=== PATIENT | male | born 1970 | race Two or more races ===

== ENCOUNTER 2022-05-20 12:52 | Outpatient (CLI) | payer OTHER | END 2022-05-20 23:59 | disposition home or self-care (01) | LOC: RAD 12:52 | PROVIDERS: ATTEND Chiropractor | DX: I51.7 Cardiomegaly (principal); I25.9 Chronic ischemic heart disease, unspecified | CPT/HCPCS: 93306 ==

== ENCOUNTER 2023-07-18 06:45 | Day surgery (SDC) | payer OTHER ==
[~2023-07-18] VITALS: Ht 177.8 cm; Wt 108.4 kg
[2023-07-18] VITALS (10 sets, daily range): BP systolic 113–144; BP diastolic 71–99; PULSE 57–66; RESP 12–16; TEMP 98.5; O2SAT 95
[2023-07-18] MEDS ORDERED: RANO10005 PO (07:15)
[2023-07-18] MEDS ORDERED: METF-900 PO (07:15)
[2023-07-18] MEDS ORDERED: CLOP75TA34 PO (07:15)
[2023-07-18] MEDS ORDERED: OMEP40CA21 PO (07:16)
[2023-07-18] MEDS ORDERED: LISI20TA28 PO (07:17)
[2023-07-18] MEDS ORDERED: METO-467 PO (07:17)
[2023-07-18] MEDS ORDERED: ATOR80TA PO (07:19)
[2023-07-18] MEDS ORDERED: HYDR-3686 PO (07:19)
[2023-07-18] MEDS ORDERED: normal saline 1,000 ML IV SCH (07:20)
[2023-07-18] MEDS ORDERED: ASPI-1265 PO (07:20)
[2023-07-18] MEDS ORDERED: AMLO10TA48 PO (07:20)
[2023-07-18] MEDS ORDERED: diphenhydrAMINE 25mg capsule PO PRN (07:20)
[2023-07-18] MEDS ORDERED: sodium bicarbonate 1meq/ml syr 150 ML in dextrose 5%-water 1,000 ML IV SCH (07:30)
[2023-07-18 08:01] LABS: BASOPHILS % (AUTO) 0.4 % (0-1); EOSINOPHILS # (AUTO) 0.2 X10'3 (0-0.9); EOSINOPHILS % (AUTO) 3.8 % (0-6); HEMOGLOBIN 14.3 g/dl (14.0-17.9); LYMPHOCYTES # (AUTO) 2.8 X10'3 (1.1-4.8); MEAN CORPUSCULAR HEMOGLOBIN 30.6 PG (27.0-31.0); MEAN CORPUSCULAR HGB CONC 34.9 g/dL (33.0-36.5); MEAN CORPUSCULAR VOLUME 87.6 FL (78-98); MONOCYTES # (AUTO) 0.4 X10'3 (0-0.9); NEUTROPHILS # (AUTO) 2.6 X10'3 (1.8-7.7); NEUTROPHILS % (AUTO) 43.8 % (42-75); PLATELET COUNT 209 X10'3 (140-440); RED BLOOD COUNT 4.68 X10'6 (4.70-6.10); RED CELL DISTRIBUTION WIDTH 13.2 % (11.5-14.5)
[2023-07-18 08:13] LABS: INR 0.9 INR; PROTHROMBIN TIME 10.2 SECONDS (9.0-12.0)
[2023-07-18 08:23] LABS: ANION GAP 9 (8-16); BLOOD UREA NITROGEN 16 MG/DL (7-18); BUN/CREATININE RATIO 13.9 (10.0-20.0); CALCIUM 9.6 MG/DL (8.5-10.1); CHLORIDE 101 MMOL/L (99-107); CREATININE 1.15 MG/DL (0.60-1.10); GLUCOSE 282 MG/DL (70-104); POTASSIUM 3.8 MMOL/L (3.5-5.1); SODIUM 137 MMOL/L (135-145); TOTAL CARBON DIOXIDE 27.4 MMOL/L (24-32); eCRCL 79 ML/MIN; eGFR 67 ML/MIN
[2023-07-18] MEDS ORDERED: LIDOcaine 1% (10mg/ml) 2ml vial ONE (10:26)
[2023-07-18] MEDS ORDERED: fentaNYL/PF 50MCG/1 ML 2ML syringe ONE (10:26)
[2023-07-18] MEDS ORDERED: midazolam 1 mg/ML 2ml injection ONE ×2 (10:26→11:06)
[2023-07-18] MEDS ORDERED: iohexol 350MG/ML 100ml bottle IV ONE (10:27)
[2023-07-18] MEDS ORDERED: heparin 1,000unit/ml 10ml vial 10 ML ONE (10:27)
[2023-07-18] MEDS ORDERED: verapamil 2.5 mg/ml inj IV ONE (10:29)
[2023-07-18] MEDS ORDERED: nitroGLYCERIN 500mcg/5mL D5W 5 ML IV ONE (10:32)
== END 2023-07-18 15:15 | disposition home or self-care (01) ==
LOC: SSTAY O 06:45
PROVIDERS: ATTEND Internal Medicine Cardiovascular Disease
DX: I25.119 Atherosclerotic heart disease of native coronary artery with unspecified angina pectoris (principal); T82.855A Stenosis of coronary artery stent, initial encounter; E11.9 Type 2 diabetes mellitus without complications; E78.00 Pure hypercholesterolemia, unspecified; F43.10 Post-traumatic stress disorder, unspecified; I10 Essential (primary) hypertension; E03.9 Hypothyroidism, unspecified; F32.A Depression, unspecified; Z79.82 Long term (current) use of aspirin; Z79.899 Other long term (current) drug therapy; Y83.8 Other surgical procedures as the cause of abnormal reaction of the patient, or of later complication, without mention of misadventure at the time of the procedure; Z98.890 Other specified postprocedural states; Z88.0 Allergy status to penicillin
CPT/HCPCS: 36415; 80048; 82948; 85025; 85610; 93458; 99152; 99153; A6258; J1644; J2250; J3010; J3490; J7030; Q0163; Q9967; A6402; C1894

== ENCOUNTER 2023-10-06 19:32 | Emergency (ER) | payer OTHER ==
[~2023-10-06] VITALS: Ht 175.3 cm; Wt 101.8 kg
[~2023-10-06 19:32] MED LIST: AMLO10TA48 PO; ASPI-1265 PO; ATOR80TA PO; CHOL200074 PO; CLOP75TA34 PO; HYDR12.55 PO; LEVO50TA8 PO; LISI20TA28 PO; METF-900 PO; METO-467 PO; OMEP40CA21 PO; RANO10005 PO
[2023-10-06 19:37] VITALS: BP 174/119; PULSE 92; RESP 17; TEMP 97.5; O2SAT 99
[2023-10-06] MEDS ORDERED: aspirin 81mg tab.chew PO ONE (19:40)
[2023-10-06 20:05] LABS: BASOPHILS % (AUTO) 0.5 % (0-1); EOSINOPHILS # (AUTO) 0.2 X10'3 (0-0.9); EOSINOPHILS % (AUTO) 1.9 % (0-6); HEMATOCRIT 40.7 % (42.0-52.0); HEMOGLOBIN 13.6 g/dl (14.0-17.9); LYMPHOCYTES # (AUTO) 2.2 X10'3 (1.1-4.8); LYMPHOCYTES % (AUTO) 27.6 % (21-51); MEAN CORPUSCULAR HGB CONC 33.4 g/dL (33.0-36.5); MEAN CORPUSCULAR VOLUME 86.7 FL (78-98); MONOCYTES # (AUTO) 0.5 X10'3 (0-0.9); MONOCYTES % (AUTO) 6.8 % (2-12); NEUTROPHILS # (AUTO) 5.1 X10'3 (1.8-7.7); NEUTROPHILS % (AUTO) 63.2 % (42-75); PLATELET COUNT 235 X10'3 (140-440); RED BLOOD COUNT 4.69 X10'6 (4.70-6.10); RED CELL DISTRIBUTION WIDTH 14.7 % (11.5-14.5)
[2023-10-06 20:22] LABS: ALANINE AMINOTRANSFERASE 31 U/L (12-78); ALBUMIN 3.9 G/DL (3.4-5.0); ALKALINE PHOSPHATASE 80 IU/L (46-116); ANION GAP 11 (8-16); ASPARTATE AMINO TRANSFERASE 21 U/L (10-37); BLOOD UREA NITROGEN 14 MG/DL (7-18); BUN/CREATININE RATIO 13.9 (10.0-20.0); CALCIUM 9.4 MG/DL (8.5-10.1); CHLORIDE 102 MMOL/L (99-107); CREATININE 1.01 MG/DL (0.60-1.10); GLUCOSE 180 MG/DL (70-104); POTASSIUM 3.4 MMOL/L (3.5-5.1); SODIUM 142 MMOL/L (135-145); TOTAL CARBON DIOXIDE 29.1 MMOL/L (24-32); TOTAL PROTEIN 7.8 G/DL (6.4-8.2); eCRCL 87 ML/MIN; eGFR 78 ML/MIN
[2023-10-06 20:29] LABS: MAGNESIUM 1.6 MG/DL (1.5-2.4); PRO BRAIN NATRIURETIC PEPTIDE 762 PG/ML (0-125)
== END 2023-10-06 20:54 | disposition left against medical advice (07) ==
LOC: ER 19:33
DX: M54.2 Cervicalgia (principal); Z53.21 Procedure and treatment not carried out due to patient leaving prior to being seen by health care provider
CPT/HCPCS: 36415; 71045; 80053; 83735; 83880; 84484; 85025; 93005; 99281

== ENCOUNTER 2023-11-21 14:23 | Outpatient (CLI) | payer OTHER ==
[~2023-11-21 14:23] MED LIST changes: +TADA5TAB2 PO
== END 2023-11-21 23:59 | disposition home or self-care (01) ==
LOC: RAD 14:23
PROVIDERS: ATTEND Thoracic Surgery (Cardiothoracic Vascular Surgery)
DX: Z95.1 Presence of aortocoronary bypass graft (principal)
CPT/HCPCS: 71250

== ENCOUNTER 2024-08-02 11:57 | Outpatient (CLI) | payer OTHER ==
[~2024-08-02 11:57] MED LIST changes: +AMLO-888 PO; -AMLO10TA48 PO; -TADA5TAB2 PO
== END 2024-08-02 23:59 | disposition home or self-care (01) ==
LOC: CARD DIAG 11:57
PROVIDERS: ATTEND Chiropractor
DX: I08.0 Rheumatic disorders of both mitral and aortic valves (principal); I25.9 Chronic ischemic heart disease, unspecified; Z95.1 Presence of aortocoronary bypass graft
CPT/HCPCS: 93306